=== PATIENT | male | born 1980 | race Caucasian/White ===

== ENCOUNTER 2024-12-04 09:00 | Outpatient (RCR) | payer BC, SELFPAY | END 2024-12-04 23:59 | disposition home or self-care (01) | LOC: PT.CARL 09:00 | PROVIDERS: Visit Provider Orthopaedic Surgery | DX: Z47.89 Encounter for other orthopedic aftercare (principal); Z98.890 Other specified postprocedural states | CPT/HCPCS: 97110; 97112; 97161 ==

== ENCOUNTER 2024-12-31 10:00 | Outpatient (RCR) | payer BC, SELFPAY | END 2024-12-31 23:59 | disposition home or self-care (01) | LOC: PT.CARL 10:00 | PROVIDERS: Visit Provider Orthopaedic Surgery | DX: Z47.89 Encounter for other orthopedic aftercare (principal); Z98.1 Arthrodesis status | CPT/HCPCS: 97110; 97112; 97140; 97164; 97530 ==

== ENCOUNTER 2025-01-28 09:00 | Outpatient (RCR) | payer BC, SELFPAY | END 2025-02-04 10:44 | disposition home or self-care (01) | LOC: PT.CARL 09:00 | PROVIDERS: Visit Provider Orthopaedic Surgery | DX: Z47.89 Encounter for other orthopedic aftercare (principal); Z98.1 Arthrodesis status | CPT/HCPCS: 97014; 97110; 97112; 97530; G0283 ==